=== PATIENT | male | born 1955 | race Caucasian/White ===

== ENCOUNTER → 2020-03-01 | Outpatient (CLI) | payer OTHER ==
[~2020-03-01] MED LIST: NORTRIPTYLINE H10 M2 GT; PROTONIX40 M2 PO; ZEGERID 40 MG1 EACH PO; [UNRECOGNIZED DRUG - OTHER] PO
== END ==
LOC: CAT 15:33
PROVIDERS: ATTEND Family Medicine
DX: Z13.6 Encounter for screening for cardiovascular disorders (principal); I25.10 Atherosclerotic heart disease of native coronary artery without angina pectoris; E78.00 Pure hypercholesterolemia, unspecified

== ENCOUNTER → 2020-10-12 | Outpatient (CLI) | payer OTHER | LOC: CAT 08:01 | PROVIDERS: ATTEND Internal Medicine Cardiovascular Disease | DX: Z13.6 Encounter for screening for cardiovascular disorders (principal); I25.10 Atherosclerotic heart disease of native coronary artery without angina pectoris; E78.00 Pure hypercholesterolemia, unspecified ==